=== PATIENT | female | born 1980 | race African-American/Black ===

== ENCOUNTER 2018-10-10 06:46 | Emergency (ER) | payer OTHER ==
[~2018-10-10] VITALS: Ht 177.8 cm; Wt 166.9 kg
[2018-10-10] MEDS ORDERED: MEDROL4 MG PO (07:29)
[2018-10-10] MEDS ORDERED: ULTRAM50 MG PO (07:30)
[2018-10-10] MEDS ORDERED: KETOROLAC TROMETHAMINE 60 MG/2 ML VIAL IM ONE (07:30)
[2018-10-10] MEDS ORDERED: NAPROXEN500 M1 PO (07:30)
[2018-10-10] MEDS ORDERED: CYCLOBENZAPRINE5 MG PO (07:30)
[2018-10-10] MEDS ORDERED: KETOROLAC TROMETHAMINE 30 MG/ML VIAL ONE (07:32)
[2018-10-10] MEDS ORDERED: COLACE100 MG PO (07:44)
[2018-10-10] MEDS ORDERED: MORPHINE SULFATE INJ 4 MG/ML INJ 1ML ONE ×2 (08:07→13:04)
[2018-10-10] MEDS ORDERED: MORPHINE SULFATE 5 MG/ML VIAL IM ONE (08:15)
[2018-10-10] MEDS ORDERED: MORPHINE SULFATE INJ 4 MG/ML INJ 1ML IM SCH (08:15)
--- NOTE | 2018-10-10 08:41 | Diagnostic Imaging Report ---
Lumbar spine series, 4 views. History: <Pain>. Comparison: <None available>. Discussion: The study is limited by the patient's body habitus. The soft tissues are unremarkable. The alignment of the lumbar spine is normal. There is no evidence of fracture, spondylolisthesis or spondylolysis. The intervertebral disc spaces are within normal limits. Minimal spurring of the vertebral bodies. IMPRESSION: Minimal degenerative changes of the spine. Signed by: Dr. Byron Lowery DO on 10/10/2018 8:38 AM
[2018-10-10 09:03] VITALS: BP 159/88
[2018-10-10] MEDS ORDERED: SODIUM CHLORIDE 0.9% 1000ML 1,000 ML ONE (13:04)
[2018-10-10] MEDS ORDERED: ASPIRIN 81 MG CHEW TAB ONE (13:04)
== END 2018-10-10 09:05 | disposition home or self-care (01) ==
LOC: FSED 06:46
DX: M54.31 Sciatica, right side (principal); F17.210 Nicotine dependence, cigarettes, uncomplicated
CPT/HCPCS: 72100; 99283; J1885; J2270; J7030